=== PATIENT | female | born 1950 | race African-American/Black ===

== ENCOUNTER 2022-12-25 19:00 | Inpatient (IN) | payer MEDICARE, OTHER ==
[~2022-12-25] VITALS: Ht 152.4 cm; Wt 108.2 kg
[2022-12-25 19:00] VITALS: BP 122/47; PULSE 80; RESP 18; TEMP 97.1
[~2022-12-25 19:00] MED LIST: ALLOPURINOL; INSULIN; LASIX; LISINOPRIL; SINGULAIR
[2022-12-25 20:00] VITALS: BP 122/47; PULSE 81; RESP 18; TEMP 97.1
[2022-12-25] MEDS: GABAPENTIN 300MG CAPSULE PO SCH (21:56)
[2022-12-25] MEDS: AMLODIPINE 2.5MG TABLET PO SCH (21:56)
[2022-12-25] MEDS: ATORVASTATIN CALCIUM 20MG TABLET PO SCH (21:57)
[2022-12-25] MEDS: GUAIFENESIN 600MG ER TABLET PO SCH (21:57)
[2022-12-26 02:10] VITALS: PULSE 76; RESP 16
[2022-12-26] MEDS: IPRATROPIUM/ALBUTEROL 0.5-3(2.5)MG/3ML NEB HHN SCH ×2 (02:10→21:58)
[2022-12-26] MEDS: GABAPENTIN 300MG CAPSULE PO SCH ×3 (05:51→22:15)
[2022-12-26 06:33] LABS: BASOPHILS % 0.5 % (0.0-2.0); EOSINOPHILS % 6.1 % (0.0-5.0); HEMOGLOBIN. 9.4 g/dL (12.0-16.0); LYMPHOCYTES % 35.1 % (20.0-50.0); MEAN CORPUSCULAR VOLUME 83.7 fL (81.0-99.0); MEAN PLATELET VOLUME 7.8 fl (7.4-10.4); MONOCYTES % 6.1 % (2.0-8.0); NEUTROPHILS % 52.2 % (40.0-76.0); PLATELET 303 x1000/uL (130-400); RED BLOOD CELL COUNT 3.47 mill/uL (4.2-5.4); RED CELL DISTRIBUTION WIDTH 16.5 % (11.6-14.6)
[2022-12-26 06:47] LABS: CHLORIDE 103 mEq/L (98-107)
[2022-12-26] MEDS ORDERED: SODIUM CHLORIDE 0.45% 1,000 ML IV SCH (07:45)
[2022-12-26 08:00] VITALS: BP 122/54; PULSE 74; RESP 18; TEMP 96.7
[2022-12-26] MEDS ORDERED: CLONIDINE 0.2MG TABLET PO PRN (08:00)
[2022-12-26] MEDS ORDERED: IPRATROPIUM/ALBUTEROL 0.5-3(2.5)MG/3ML NEB HHN PRN (08:00)
[2022-12-26] MEDS: CHOLECALCIFEROL (D3) 1000 UNIT TABLET PO SCH (08:41)
[2022-12-26] MEDS: FERROUS SULFATE 325MG TABLET PO SCH ×2 (08:41→18:00)
[2022-12-26] MEDS: ALLOPURINOL 100 MG TABLET PO SCH (08:41)
[2022-12-26] MEDS: ASPIRIN 81MG TABLET PO SCH (08:42)
[2022-12-26] MEDS: FUROSEMIDE 40MG TABLET PO SCH (08:42)
[2022-12-26] MEDS: LOSARTAN POTASSIUM 25 MG TABLET PO SCH ×2 (08:42→18:01)
[2022-12-26] MEDS: GUAIFENESIN 600MG ER TABLET PO SCH ×2 (08:42→22:05)
[2022-12-26] MEDS: AMLODIPINE 2.5MG TABLET PO SCH ×2 (08:43→22:05)
[2022-12-26] MEDS: PANTOT AC/MIN OIL/PET HY-PHL OINT (AQUAPHOR) TOP SCH (09:00)
[2022-12-26] MEDS ORDERED: PRAMOXINE HCL PR SCH (09:00)
[2022-12-26 09:16] LABS: CREATINE KINASE 94 IU/L (26-192)
[2022-12-26] MEDS ORDERED: POVIDONE-IODINE 10% TOPICAL SOLN 240ML TOP NR (13:30)
[2022-12-26] MEDS ORDERED: LACTULOSE 20G/30ML UDC PO NR (14:22)
[2022-12-26] MEDS: LEVOFLOXACIN 250MG TABLET PO SCH (18:01)
[2022-12-26 20:00] VITALS: BP 122/63; PULSE 86; RESP 19; TEMP 97
[2022-12-26 21:55] VITALS: PULSE 84; RESP 20
[2022-12-26] MEDS: ATORVASTATIN CALCIUM 20MG TABLET PO SCH (22:10)
[2022-12-26] MEDS: CETIRIZINE 10MG TABLET PO SCH (22:15)
[2022-12-26] MEDS: LATANOPROST 0.005% OPHTH DROPS 2.5ML RIGHTEYE SCH (23:00)
[2022-12-27 05:12] LABS: CHLORIDE 102 mEq/L (98-107)
[2022-12-27 05:24] LABS: TOTAL IRON BINDING CAPACITY 190 ug/dL (250-450)
[2022-12-27 05:55] LABS: FOLIC ACID (FOLATE) SERUM 7.6 ng/mL (>5.38)
[2022-12-27 06:28] LABS: BASOPHILS % 0.5 % (0.0-2.0); EOSINOPHILS % 5.4 % (0.0-5.0); HEMATOCRIT. 28.7 % (36.0-48.0); HEMOGLOBIN. 9.1 g/dL (12.0-16.0); LYMPHOCYTES % 29.4 % (20.0-50.0); MEAN CORPUSCULAR HEMOGLOBIN 26.8 pg (28.0-32.0); MEAN CORPUSCULAR VOLUME 84.2 fL (81.0-99.0); MEAN PLATELET VOLUME 8.1 fl (7.4-10.4); NEUTROPHILS % 57.7 % (40.0-76.0); PLATELET 314 x1000/uL (130-400); RED BLOOD CELL COUNT 3.41 mill/uL (4.2-5.4); RED CELL DISTRIBUTION WIDTH 16.5 % (11.6-14.6)
[2022-12-27] MEDS: GABAPENTIN 300MG CAPSULE PO SCH ×3 (07:00→22:43)
[2022-12-27 07:31] VITALS: PULSE 80; RESP 18
[2022-12-27] MEDS: IPRATROPIUM/ALBUTEROL 0.5-3(2.5)MG/3ML NEB HHN SCH ×3 (07:31→22:45)
[2022-12-27 08:00] VITALS: BP 110/64; PULSE 78; RESP 20; TEMP 98.2
[2022-12-27] MEDS ORDERED: LACTULOSE 20G/30ML UDC PO PRN (08:00)
[2022-12-27] MEDS: LOSARTAN POTASSIUM 25 MG TABLET PO SCH (08:30)
[2022-12-27] MEDS: AMLODIPINE 2.5MG TABLET PO SCH ×2 (08:30→20:59)
[2022-12-27] MEDS: FUROSEMIDE 40MG TABLET PO SCH (08:36)
[2022-12-27] MEDS: GUAIFENESIN 600MG ER TABLET PO SCH ×2 (08:36→21:00)
[2022-12-27] MEDS: ASPIRIN 81MG TABLET PO SCH (08:36)
[2022-12-27] MEDS: ALLOPURINOL 100 MG TABLET PO SCH (08:37)
[2022-12-27] MEDS: PANTOT AC/MIN OIL/PET HY-PHL OINT (AQUAPHOR) TOP SCH (08:42)
[2022-12-27] MEDS: FERROUS SULFATE 325MG TABLET PO SCH ×2 (08:42→16:10)
[2022-12-27] MEDS: CHOLECALCIFEROL (D3) 1000 UNIT TABLET PO SCH (08:42)
[2022-12-27 12:44] VITALS: PULSE 78; RESP 18
[2022-12-27] MEDS: BUDESONIDE 0.5MG/2ML NEB HHN SCH ×2 (12:44→22:45)
[2022-12-27] MEDS: LIDOCAINE 5% PATCH TOP SCH (13:07)
[2022-12-27] MEDS: DICLOFENAC SODIUM 1% GEL 50GM TOP SCH ×3 (13:39→22:44)
[2022-12-27 20:00] VITALS: BP 134/48; PULSE 74; RESP 20; TEMP 97.5
[2022-12-27] MEDS: LATANOPROST 0.005% OPHTH DROPS 2.5ML RIGHTEYE SCH (21:00)
[2022-12-27] MEDS: CETIRIZINE 10MG TABLET PO SCH (21:01)
[2022-12-27] MEDS: ATORVASTATIN CALCIUM 20MG TABLET PO SCH (21:01)
[2022-12-27 22:23] VITALS: RESP 18
[2022-12-27 22:40] VITALS: PULSE 82; RESP 18; O2SAT 97
[2022-12-28] MEDS: GABAPENTIN 300MG CAPSULE PO SCH ×3 (05:41→22:11)
[2022-12-28 07:15] LABS: BASOPHILS % 0.6 % (0.0-2.0); EOSINOPHILS % 5.2 % (0.0-5.0); HEMATOCRIT. 29.3 % (36.0-48.0); HEMOGLOBIN. 9.2 g/dL (12.0-16.0); LYMPHOCYTES % 30.8 % (20.0-50.0); MEAN CORPUSCULAR HEMOGLOBIN 26.4 pg (28.0-32.0); MEAN CORPUSCULAR VOLUME 83.8 fL (81.0-99.0); MEAN PLATELET VOLUME 8.2 fl (7.4-10.4); MONOCYTES % 7.3 % (2.0-8.0); NEUTROPHILS % 56.1 % (40.0-76.0); PLATELET 295 x1000/uL (130-400); RED BLOOD CELL COUNT 3.49 mill/uL (4.2-5.4); RED CELL DISTRIBUTION WIDTH 16.3 % (11.6-14.6)
[2022-12-28 08:00] VITALS: BP 117/54; PULSE 87; RESP 18; TEMP 96.6
[2022-12-28] MEDS: FERROUS SULFATE 325MG TABLET PO SCH ×2 (09:15→17:42)
[2022-12-28] MEDS: GUAIFENESIN 600MG ER TABLET PO SCH ×2 (09:15→22:12)
[2022-12-28] MEDS: IPRATROPIUM/ALBUTEROL 0.5-3(2.5)MG/3ML NEB HHN SCH ×4 (09:15→20:14)
[2022-12-28] MEDS: BUDESONIDE 0.5MG/2ML NEB HHN SCH ×2 (09:15→20:11)
[2022-12-28] MEDS: ALLOPURINOL 100 MG TABLET PO SCH (09:15)
[2022-12-28] MEDS: ASPIRIN 81MG TABLET PO SCH (09:15)
[2022-12-28] MEDS: LIDOCAINE 5% PATCH TOP SCH (09:15)
[2022-12-28] MEDS: DICLOFENAC SODIUM 1% GEL 50GM TOP SCH ×4 (09:16→22:10)
[2022-12-28] MEDS: AMLODIPINE 2.5MG TABLET PO SCH ×2 (09:16→21:00)
[2022-12-28] MEDS: CHOLECALCIFEROL (D3) 1000 UNIT TABLET PO SCH (09:17)
[2022-12-28] MEDS: PANTOT AC/MIN OIL/PET HY-PHL OINT (AQUAPHOR) TOP SCH (09:18)
[2022-12-28 09:35] VITALS: PULSE 84; RESP 18; O2SAT 98
[2022-12-28 15:35] VITALS: PULSE 87; RESP 16; O2SAT 98
[2022-12-28] MEDS: LEVOFLOXACIN 250MG TABLET PO SCH (17:42)
[2022-12-28 20:00] VITALS: BP 109/51; PULSE 94; RESP 20; TEMP 97
[2022-12-28 20:14] VITALS: PULSE 94; RESP 18; O2SAT 98
[2022-12-28] MEDS: LATANOPROST 0.005% OPHTH DROPS 2.5ML RIGHTEYE SCH (21:00)
[2022-12-28] MEDS: ATORVASTATIN CALCIUM 20MG TABLET PO SCH (22:11)
[2022-12-28] MEDS: CETIRIZINE 10MG TABLET PO SCH (22:11)
[2022-12-28 23:58] VITALS: RESP 18
[2022-12-29] VITALS (7 sets, daily range): BP systolic 108–134; BP diastolic 52–53; PULSE 72–102; RESP 17–25; TEMP 97.7–98.1; O2SAT 93
[2022-12-29] MEDS: IPRATROPIUM/ALBUTEROL 0.5-3(2.5)MG/3ML NEB HHN SCH ×4 (02:03→21:34)
[2022-12-29] MEDS: GABAPENTIN 300MG CAPSULE PO SCH ×3 (06:15→21:24)
[2022-12-29 06:19] LABS: BASOPHILS % 0.5 % (0.0-2.0); EOSINOPHILS % 3.9 % (0.0-5.0); HEMATOCRIT. 27.9 % (36.0-48.0); HEMOGLOBIN. 8.9 g/dL (12.0-16.0); LYMPHOCYTES % 33.5 % (20.0-50.0); MEAN CORPUSCULAR HEMOGLOBIN 26.7 pg (28.0-32.0); MEAN CORPUSCULAR VOLUME 84.2 fL (81.0-99.0); MEAN PLATELET VOLUME 8.2 fl (7.4-10.4); NEUTROPHILS % 53.1 % (40.0-76.0); PLATELET 273 x1000/uL (130-400); RED BLOOD CELL COUNT 3.31 mill/uL (4.2-5.4); RED CELL DISTRIBUTION WIDTH 16.6 % (11.6-14.6)
[2022-12-29] MEDS: ASPIRIN 81MG TABLET PO SCH (08:13)
[2022-12-29] MEDS: ALLOPURINOL 100 MG TABLET PO SCH (08:13)
[2022-12-29] MEDS: CHOLECALCIFEROL (D3) 1000 UNIT TABLET PO SCH (08:13)
[2022-12-29] MEDS: GUAIFENESIN 600MG ER TABLET PO SCH ×2 (08:14→21:24)
[2022-12-29] MEDS: DICLOFENAC SODIUM 1% GEL 50GM TOP SCH ×5 (08:14→21:22)
[2022-12-29] MEDS: FERROUS SULFATE 325MG TABLET PO SCH ×2 (08:14→16:39)
[2022-12-29] MEDS: PANTOT AC/MIN OIL/PET HY-PHL OINT (AQUAPHOR) TOP SCH (08:15)
[2022-12-29] MEDS: LIDOCAINE 5% PATCH TOP SCH (08:15)
[2022-12-29] MEDS: AMLODIPINE 2.5MG TABLET PO SCH ×2 (08:16→21:23)
[2022-12-29] MEDS: BUDESONIDE 0.5MG/2ML NEB HHN SCH ×2 (09:24→21:34)
[2022-12-29] MEDS ORDERED: LIDOCAINE HCL 1% 20ML VIAL (Pyxis) INJ INFIL NR (12:08)
[2022-12-29] MEDS ORDERED: ETHYL CHLORIDE CAN TOP NR (13:00)
[2022-12-29] MEDS ORDERED: TRIAMCINOLONE ACETONIDE 40MG/ML 1ML VIAL IM NR (13:00)
[2022-12-29] MEDS ORDERED: LIDOCAINE HCL 1% 10 MG/ML 10ML VIAL IJ NR (13:00)
[2022-12-29] MEDS ORDERED: PRAMOXINE HCL PR PRN (20:15)
[2022-12-29] MEDS ORDERED: CLONIDINE 0.1MG TABLET PO PRN (20:15)
[2022-12-29] MEDS: ATORVASTATIN CALCIUM 20MG TABLET PO SCH (21:23)
[2022-12-29] MEDS: CETIRIZINE 10MG TABLET PO SCH (21:24)
[2022-12-29] MEDS: LATANOPROST 0.005% OPHTH DROPS 2.5ML RIGHTEYE SCH (22:29)
[2022-12-30] MEDS: IPRATROPIUM/ALBUTEROL 0.5-3(2.5)MG/3ML NEB HHN SCH (02:00)
[2022-12-30 04:58] VITALS: RESP 26
[2022-12-30] MEDS: GABAPENTIN 300MG CAPSULE PO SCH ×3 (06:49→22:00)
[2022-12-30 08:00] VITALS: BP 130/61; PULSE 101; RESP 17; TEMP 97.9
[2022-12-30] MEDS ORDERED: ALLO100T PO (08:34)
[2022-12-30] MEDS ORDERED: ASPI-1160 PO (08:34)
[2022-12-30] MEDS ORDERED: LIDO700A30 TOP (08:34)
[2022-12-30] MEDS ORDERED: PETR85OI TOP (08:34)
[2022-12-30] MEDS ORDERED: ATOR20TA PO (08:34)
[2022-12-30] MEDS ORDERED: XALAO RIGHTEYE (08:34)
[2022-12-30] MEDS ORDERED: AMLO2.5T45 PO (08:34)
[2022-12-30] MEDS ORDERED: GABA-532 PO (08:34)
[2022-12-30] MEDS ORDERED: CETI10TA6 PO (08:34)
[2022-12-30] MEDS: CHOLECALCIFEROL (D3) 1000 UNIT TABLET PO SCH (09:19)
[2022-12-30] MEDS: GUAIFENESIN 600MG ER TABLET PO SCH ×2 (09:19→22:00)
[2022-12-30] MEDS: ALLOPURINOL 100 MG TABLET PO SCH (09:19)
[2022-12-30] MEDS: ASPIRIN 81MG TABLET PO SCH (09:19)
[2022-12-30] MEDS: FERROUS SULFATE 325MG TABLET PO SCH ×2 (09:19→17:00)
[2022-12-30] MEDS: LIDOCAINE 5% PATCH TOP SCH (09:20)
[2022-12-30] MEDS: AMLODIPINE 2.5MG TABLET PO SCH ×2 (09:20→22:00)
[2022-12-30] MEDS: DICLOFENAC SODIUM 1% GEL 50GM TOP SCH ×4 (09:27→22:00)
[2022-12-30] MEDS: PANTOT AC/MIN OIL/PET HY-PHL OINT (AQUAPHOR) TOP SCH (09:27)
[2022-12-30 13:13] VITALS: PULSE 88; RESP 18; O2SAT 100
[2022-12-30] MEDS: BUDESONIDE 0.5MG/2ML NEB HHN SCH (13:13)
[2022-12-30] MEDS: IPRATROPIUM/ALBUTEROL 0.5-3(2.5)MG/3ML NEB HHN PRN (13:13)
[2022-12-30 20:00] VITALS: BP 144/64; PULSE 95; RESP 17; TEMP 98.1
[2022-12-30 21:25] LABS: BASOPHILS % 0.6 % (0.0-2.0); HEMATOCRIT. 29.4 % (36.0-48.0); HEMOGLOBIN. 9.3 g/dL (12.0-16.0); LYMPHOCYTES % 28.1 % (20.0-50.0); MEAN CORPUSCULAR HEMOGLOBIN 26.6 pg (28.0-32.0); MEAN CORPUSCULAR VOLUME 84.5 fL (81.0-99.0); MEAN PLATELET VOLUME 8.2 fl (7.4-10.4); MONOCYTES % 9.2 % (2.0-8.0); NEUTROPHILS % 57.1 % (40.0-76.0); PLATELET 281 x1000/uL (130-400); RED BLOOD CELL COUNT 3.48 mill/uL (4.2-5.4); RED CELL DISTRIBUTION WIDTH 16.6 % (11.6-14.6)
[2022-12-30] MEDS: ATORVASTATIN CALCIUM 20MG TABLET PO SCH (22:00)
[2022-12-30] MEDS: LATANOPROST 0.005% OPHTH DROPS 2.5ML RIGHTEYE SCH (22:00)
[2022-12-30] MEDS: CETIRIZINE 10MG TABLET PO SCH (22:00)
[2022-12-31] MEDS ORDERED: SODIUM POLYSTYRENE SULFONATE 15 G/60 ML BOT PO NR (04:45)
[2022-12-31] MEDS: GABAPENTIN 300MG CAPSULE PO SCH ×3 (06:15→22:18)
[2022-12-31 06:23] LABS: BASOPHILS % 0.6 % (0.0-2.0); HEMATOCRIT. 27.9 % (36.0-48.0); HEMOGLOBIN. 8.7 g/dL (12.0-16.0); LYMPHOCYTES % 27.3 % (20.0-50.0); MEAN CORPUSCULAR HEMOGLOBIN 26.4 pg (28.0-32.0); MEAN CORPUSCULAR VOLUME 84.5 fL (81.0-99.0); MEAN PLATELET VOLUME 8.7 fl (7.4-10.4); MONOCYTES % 9.1 % (2.0-8.0); PLATELET 250 x1000/uL (130-400); RED CELL DISTRIBUTION WIDTH 16.9 % (11.6-14.6)
[2022-12-31] MEDS ORDERED: ALBUTEROL (0.5%) 2.5MG/0.5ML NEB HHN NR (07:30)
[2022-12-31 08:00] VITALS: BP 105/54; PULSE 89; RESP 18; TEMP 98
[2022-12-31] MEDS: CHOLECALCIFEROL (D3) 1000 UNIT TABLET PO SCH (08:32)
[2022-12-31] MEDS: ALLOPURINOL 100 MG TABLET PO SCH (08:32)
[2022-12-31] MEDS: ASPIRIN 81MG TABLET PO SCH (08:32)
[2022-12-31] MEDS: DICLOFENAC SODIUM 1% GEL 50GM TOP SCH ×4 (08:32→21:00)
[2022-12-31] MEDS: FERROUS SULFATE 325MG TABLET PO SCH ×2 (08:32→17:00)
[2022-12-31] MEDS: GUAIFENESIN 600MG ER TABLET PO SCH ×2 (08:32→21:00)
[2022-12-31] MEDS: FUROSEMIDE 40MG TABLET PO SCH ×2 (08:32→21:00)
[2022-12-31] MEDS: AMLODIPINE 2.5MG TABLET PO SCH ×2 (08:37→21:00)
[2022-12-31] MEDS: PANTOT AC/MIN OIL/PET HY-PHL OINT (AQUAPHOR) TOP SCH (08:38)
[2022-12-31] MEDS: LIDOCAINE 5% PATCH TOP SCH (08:39)
[2022-12-31 20:00] VITALS: BP 98/53; PULSE 63; RESP 16; TEMP 97.6
[2022-12-31] MEDS: CETIRIZINE 10MG TABLET PO SCH (21:00)
[2022-12-31] MEDS: ATORVASTATIN CALCIUM 20MG TABLET PO SCH (21:00)
[2022-12-31] MEDS: LATANOPROST 0.005% OPHTH DROPS 2.5ML RIGHTEYE SCH (21:00)
[2022-12-31 22:50] VITALS: RESP 18
[2023-01-01 00:48] VITALS: RESP 18
[2023-01-01 04:48] VITALS: RESP 18
[2023-01-01] MEDS: GABAPENTIN 300MG CAPSULE PO SCH ×3 (06:00→22:00)
[2023-01-01 06:12] LABS: BASOPHILS % 0.7 % (0.0-2.0); HEMATOCRIT. 26.7 % (36.0-48.0); HEMOGLOBIN. 8.5 g/dL (12.0-16.0); MEAN CORPUSCULAR HEMOGLOBIN 26.6 pg (28.0-32.0); MEAN CORPUSCULAR VOLUME 83.7 fL (81.0-99.0); MEAN PLATELET VOLUME 8.5 fl (7.4-10.4); MONOCYTES % 9.9 % (2.0-8.0); NEUTROPHILS % 48.4 % (40.0-76.0); PLATELET 232 x1000/uL (130-400); RED BLOOD CELL COUNT 3.19 mill/uL (4.2-5.4); RED CELL DISTRIBUTION WIDTH 16.3 % (11.6-14.6)
[2023-01-01] MEDS ORDERED: SODIUM CHLORIDE 0.9% 250 ML IV NR ×2 (06:45→06:46)
[2023-01-01] MEDS ORDERED: CLONIDINE 0.1MG TABLET PO PRN (07:00)
[2023-01-01 08:00] VITALS: BP 131/71; PULSE 72; RESP 17; TEMP 97.5
[2023-01-01] MEDS ORDERED: SODIUM CHLORIDE 0.9% 250 ML IV ONE (08:00)
[2023-01-01] MEDS: FERROUS SULFATE 325MG TABLET PO SCH ×2 (09:00→16:11)
[2023-01-01] MEDS: DICLOFENAC SODIUM 1% GEL 50GM TOP SCH ×4 (09:00→21:59)
[2023-01-01] MEDS: GUAIFENESIN 600MG ER TABLET PO SCH ×2 (09:00→23:35)
[2023-01-01] MEDS: LIDOCAINE 5% PATCH TOP SCH (09:00)
[2023-01-01] MEDS: CHOLECALCIFEROL (D3) 1000 UNIT TABLET PO SCH (09:00)
[2023-01-01] MEDS: ASPIRIN 81MG TABLET PO SCH (09:00)
[2023-01-01] MEDS: AMLODIPINE 2.5MG TABLET PO SCH ×2 (09:00→21:57)
[2023-01-01] MEDS: ALLOPURINOL 100 MG TABLET PO SCH (09:00)
[2023-01-01] MEDS: PANTOT AC/MIN OIL/PET HY-PHL OINT (AQUAPHOR) TOP SCH (09:00)
[2023-01-01] MEDS: FUROSEMIDE 40MG TABLET PO SCH ×2 (09:00→21:58)
[2023-01-01] MEDS ORDERED: HYDROCODONE/ACETAMINOPHEN 5/325MG TABLET PO PRN (18:00)
[2023-01-01 19:45] VITALS: BP 140/61; PULSE 76; RESP 18; TEMP 97.2
[2023-01-01] MEDS: CETIRIZINE 10MG TABLET PO SCH (21:58)
[2023-01-01] MEDS: ATORVASTATIN CALCIUM 20MG TABLET PO SCH (21:58)
[2023-01-01] MEDS: LATANOPROST 0.005% OPHTH DROPS 2.5ML RIGHTEYE SCH (21:59)
[2023-01-01 22:45] VITALS: RESP 19
[2023-01-02 01:59] VITALS: RESP 19
[2023-01-02] MEDS: GABAPENTIN 300MG CAPSULE PO SCH ×3 (06:19→21:55)
[2023-01-02 08:00] VITALS: BP 129/53; PULSE 73; RESP 20; TEMP 96.5
[2023-01-02] MEDS: ASPIRIN 81MG TABLET PO SCH (08:02)
[2023-01-02] MEDS: FERROUS SULFATE 325MG TABLET PO SCH ×2 (08:02→16:39)
[2023-01-02] MEDS: FUROSEMIDE 40MG TABLET PO SCH ×2 (08:03→21:50)
[2023-01-02] MEDS: AMLODIPINE 2.5MG TABLET PO SCH ×2 (08:04→21:50)
[2023-01-02] MEDS: GUAIFENESIN 600MG ER TABLET PO SCH ×2 (08:04→21:50)
[2023-01-02] MEDS: ALLOPURINOL 100 MG TABLET PO SCH (08:05)
[2023-01-02] MEDS: LIDOCAINE 5% PATCH TOP SCH (08:06)
[2023-01-02] MEDS: CHOLECALCIFEROL (D3) 1000 UNIT TABLET PO SCH (08:33)
[2023-01-02] MEDS: DICLOFENAC SODIUM 1% GEL 50GM TOP SCH ×4 (08:35→22:00)
[2023-01-02] MEDS: PANTOT AC/MIN OIL/PET HY-PHL OINT (AQUAPHOR) TOP SCH (08:46)
[2023-01-02 20:00] VITALS: BP 140/41; PULSE 95; RESP 20; TEMP 97
[2023-01-02 21:30] VITALS: PULSE 97; RESP 18; O2SAT 95
[2023-01-02] MEDS: IPRATROPIUM/ALBUTEROL 0.5-3(2.5)MG/3ML NEB HHN PRN (21:30)
[2023-01-02] MEDS: CETIRIZINE 10MG TABLET PO SCH (21:50)
[2023-01-02] MEDS: ATORVASTATIN CALCIUM 20MG TABLET PO SCH (21:50)
[2023-01-02] MEDS: LATANOPROST 0.005% OPHTH DROPS 2.5ML RIGHTEYE SCH (21:55)
[2023-01-02 23:59] VITALS: RESP 22
[2023-01-03 02:53] VITALS: RESP 22
[2023-01-03] MEDS: GABAPENTIN 300MG CAPSULE PO SCH ×3 (06:21→21:59)
[2023-01-03] MEDS: INSULIN LISPRO 100 UNITS/ML SUBCUT SCH ×2 (06:24→13:00)
[2023-01-03 06:42] LABS: T4 FREE 1.12 ng/dL (0.76-1.46)
[2023-01-03 08:00] VITALS: BP 104/45; PULSE 75; RESP 17; TEMP 97.2
[2023-01-03] MEDS: PANTOT AC/MIN OIL/PET HY-PHL OINT (AQUAPHOR) TOP SCH (09:00)
[2023-01-03] MEDS: DICLOFENAC SODIUM 1% GEL 50GM TOP SCH ×4 (09:00→21:58)
[2023-01-03] MEDS: ALLOPURINOL 100 MG TABLET PO SCH (09:09)
[2023-01-03] MEDS: ASPIRIN 81MG TABLET PO SCH (09:09)
[2023-01-03] MEDS: FERROUS SULFATE 325MG TABLET PO SCH ×2 (09:09→17:57)
[2023-01-03] MEDS: FUROSEMIDE 40MG TABLET PO SCH ×2 (09:09→21:59)
[2023-01-03] MEDS: LINAGLIPTIN 5MG TABLET PO SCH (09:10)
[2023-01-03] MEDS: AMLODIPINE 2.5MG TABLET PO SCH ×2 (09:10→21:58)
[2023-01-03] MEDS: CHOLECALCIFEROL (D3) 1000 UNIT TABLET PO SCH (09:10)
[2023-01-03] MEDS: GUAIFENESIN 600MG ER TABLET PO SCH ×2 (09:10→21:59)
[2023-01-03] MEDS: LIDOCAINE 5% PATCH TOP SCH (09:19)
[2023-01-03] MEDS: BLOOD SUGAR DIAGNOSTIC STRIP TEST SCH ×3 (11:15→21:28)
[2023-01-03] MEDS ORDERED: DEXTROSE 50% WATER 50ML SYRINGE IV PRN (12:15)
[2023-01-03 12:24] VITALS: PULSE 73; RESP 20; O2SAT 100
[2023-01-03] MEDS: IPRATROPIUM/ALBUTEROL 0.5-3(2.5)MG/3ML NEB HHN PRN (12:25)
[2023-01-03 12:40] VITALS: RESP 20
[2023-01-03 16:58] LABS: BASOPHILS % 0.6 % (0.0-2.0); EOSINOPHILS % 4.9 % (0.0-5.0); HEMOGLOBIN. 9.7 g/dL (12.0-16.0); MEAN CORPUSCULAR HEMOGLOBIN 26.9 pg (28.0-32.0); MEAN CORPUSCULAR VOLUME 82.8 fL (81.0-99.0); MEAN PLATELET VOLUME 8.6 fl (7.4-10.4); MONOCYTES % 7.6 % (2.0-8.0); NEUTROPHILS % 51.9 % (40.0-76.0); PLATELET 277 x1000/uL (130-400); RED BLOOD CELL COUNT 3.62 mill/uL (4.2-5.4); RED CELL DISTRIBUTION WIDTH 16.1 % (11.6-14.6)
[2023-01-03 17:49] LABS: BG BASE EXCESS 11.3 mmol/L (-2.0-2.0); BG CARBOXYHEMOGLOBIN 0.2 % (0.5-1.5); BG DEOXYHEMOGLOBIN 2.3 % (0.0-5.0); BG FRACTION INSPIRED OXYGEN 28; BG HCO3 ACT 37.9 mmol/L (22.0-26.0); BG OXYGEN SATURATION 97.7 % (92.0-98.5); BG OXYHEMOGLOBIN 97.5 % (94.0-97.0); BG PCO2 59.7 mmHg (35.0-45.0); BG PO2 101.3 mmHg (75.0-100.0); BG SAMPLE SITE RIGHT RADIAL; BG VENT MODE NASAL CANNULA
[2023-01-03 20:00] VITALS: BP 113/48; PULSE 82; RESP 20; TEMP 97
[2023-01-03] MEDS: ATORVASTATIN CALCIUM 20MG TABLET PO SCH (21:58)
[2023-01-03] MEDS: LATANOPROST 0.005% OPHTH DROPS 2.5ML RIGHTEYE SCH (21:59)
[2023-01-03] MEDS: CETIRIZINE 10MG TABLET PO SCH (21:59)
[2023-01-04 00:45] VITALS: RESP 19
[2023-01-04 04:15] VITALS: RESP 20
[2023-01-04] MEDS: GABAPENTIN 300MG CAPSULE PO SCH ×3 (06:00→21:22)
[2023-01-04] MEDS: BLOOD SUGAR DIAGNOSTIC STRIP TEST SCH ×4 (06:04→21:20)
[2023-01-04 06:22] LABS: BASOPHILS % 0.5 % (0.0-2.0); EOSINOPHILS % 4.8 % (0.0-5.0); HEMATOCRIT. 28.6 % (36.0-48.0); HEMOGLOBIN. 9.1 g/dL (12.0-16.0); LYMPHOCYTES % 32.8 % (20.0-50.0); MEAN CORPUSCULAR HEMOGLOBIN 26.3 pg (28.0-32.0); MEAN CORPUSCULAR VOLUME 82.8 fL (81.0-99.0); MEAN PLATELET VOLUME 8.7 fl (7.4-10.4); NEUTROPHILS % 53.9 % (40.0-76.0); PLATELET 264 x1000/uL (130-400); RED BLOOD CELL COUNT 3.46 mill/uL (4.2-5.4); RED CELL DISTRIBUTION WIDTH 16.4 % (11.6-14.6)
[2023-01-04] MEDS: INSULIN LISPRO 100 UNITS/ML SUBCUT SCH ×3 (07:00→17:41)
[2023-01-04 08:00] VITALS: BP 118/43; PULSE 78; RESP 18; TEMP 97.2
[2023-01-04] MEDS: AMLODIPINE 2.5MG TABLET PO SCH ×2 (09:00→21:22)
[2023-01-04] MEDS: PANTOT AC/MIN OIL/PET HY-PHL OINT (AQUAPHOR) TOP SCH (09:00)
[2023-01-04] MEDS: ASPIRIN 81MG TABLET PO SCH (09:37)
[2023-01-04] MEDS: FERROUS SULFATE 325MG TABLET PO SCH ×2 (09:37→17:36)
[2023-01-04] MEDS: FUROSEMIDE 40MG TABLET PO SCH ×2 (09:38→21:22)
[2023-01-04] MEDS: LINAGLIPTIN 5MG TABLET PO SCH (09:38)
[2023-01-04] MEDS: CHOLECALCIFEROL (D3) 1000 UNIT TABLET PO SCH (09:38)
[2023-01-04] MEDS: ALLOPURINOL 100 MG TABLET PO SCH (09:38)
[2023-01-04] MEDS: LIDOCAINE 5% PATCH TOP SCH (09:38)
[2023-01-04] MEDS: GUAIFENESIN 600MG ER TABLET PO SCH ×2 (09:38→21:22)
[2023-01-04] MEDS: DICLOFENAC SODIUM 1% GEL 50GM TOP SCH ×4 (09:41→21:23)
[2023-01-04] MEDS: ACETAMINOPHEN 325MG TABLET PO PRN (09:41)
[2023-01-04 10:00] VITALS: PULSE 88; RESP 22; O2SAT 96
[2023-01-04] MEDS: IPRATROPIUM/ALBUTEROL 0.5-3(2.5)MG/3ML NEB HHN PRN (10:03)
[2023-01-04 10:33] LABS: CREATINE KINASE 132 IU/L (26-192)
[2023-01-04 16:02] LABS: CLARITY URINE CLEAR (CLEAR); COLOR URINE YELLOW (YELLOW); KETONES URINE NEGATIVE (NEGATIVE); LEUKOCYTE ESTERASE URINE NEGATIVE (NEGATIVE); NITRITE URINE NEGATIVE (NEGATIVE); OCCULT BLOOD URINE NEGATIVE (NEGATIVE); PH URINE 5.5 (4.5-8.0); PROTEIN URINE 1+ (NEGATIVE); SPECIFIC GRAVITY URINE 1.011 (1.005-1.030); UROBILINOGEN URINE 0.2 E.U./dL (0.2-1.0)
[2023-01-04 20:15] VITALS: BP 122/53; PULSE 85; RESP 18; TEMP 97.3
[2023-01-04] MEDS: CETIRIZINE 10MG TABLET PO SCH (21:22)
[2023-01-04] MEDS: ATORVASTATIN CALCIUM 20MG TABLET PO SCH (21:22)
[2023-01-04] MEDS: LATANOPROST 0.005% OPHTH DROPS 2.5ML RIGHTEYE SCH (21:23)
[2023-01-05] VITALS: RESP 24
[2023-01-05 06:18] LABS: BASOPHILS % 0.5 % (0.0-2.0); EOSINOPHILS % 4.7 % (0.0-5.0); HEMATOCRIT. 28.2 % (36.0-48.0); HEMOGLOBIN. 9.1 g/dL (12.0-16.0); LYMPHOCYTES % 30.2 % (20.0-50.0); MEAN CORPUSCULAR HEMOGLOBIN 26.7 pg (28.0-32.0); MEAN CORPUSCULAR VOLUME 82.7 fL (81.0-99.0); MEAN PLATELET VOLUME 8.7 fl (7.4-10.4); MONOCYTES % 7.2 % (2.0-8.0); NEUTROPHILS % 57.4 % (40.0-76.0); PLATELET 266 x1000/uL (130-400); RED BLOOD CELL COUNT 3.41 mill/uL (4.2-5.4)
[2023-01-05] MEDS: GABAPENTIN 300MG CAPSULE PO SCH (06:50)
[2023-01-05] MEDS: BLOOD SUGAR DIAGNOSTIC STRIP TEST SCH ×4 (06:50→20:56)
[2023-01-05] MEDS: INSULIN LISPRO 100 UNITS/ML SUBCUT SCH ×4 (07:08→22:03)
[2023-01-05 08:00] VITALS: BP 105/50; PULSE 77; RESP 18; TEMP 96.5
[2023-01-05] MEDS: PANTOT AC/MIN OIL/PET HY-PHL OINT (AQUAPHOR) TOP SCH (09:00)
[2023-01-05] MEDS: DICLOFENAC SODIUM 1% GEL 50GM TOP SCH ×4 (09:00→21:28)
[2023-01-05] MEDS: LIDOCAINE 5% PATCH TOP SCH (09:00)
[2023-01-05] MEDS: LINAGLIPTIN 5MG TABLET PO SCH (09:09)
[2023-01-05] MEDS: GUAIFENESIN 600MG ER TABLET PO SCH ×2 (09:09→21:31)
[2023-01-05] MEDS: CHOLECALCIFEROL (D3) 1000 UNIT TABLET PO SCH (09:09)
[2023-01-05] MEDS: FUROSEMIDE 40MG TABLET PO SCH ×2 (09:09→21:30)
[2023-01-05] MEDS: ASPIRIN 81MG TABLET PO SCH (09:09)
[2023-01-05] MEDS: FERROUS SULFATE 325MG TABLET PO SCH ×2 (09:10→17:26)
[2023-01-05] MEDS: ALLOPURINOL 100 MG TABLET PO SCH (09:10)
[2023-01-05] MEDS: AMLODIPINE 2.5MG TABLET PO SCH ×2 (09:10→21:30)
[2023-01-05 20:00] VITALS: BP 117/68; PULSE 69; RESP 20; TEMP 97.7
[2023-01-05 21:14] VITALS: PULSE 64; RESP 16; O2SAT 94
[2023-01-05] MEDS: IPRATROPIUM/ALBUTEROL 0.5-3(2.5)MG/3ML NEB HHN PRN (21:14)
[2023-01-05] MEDS: LATANOPROST 0.005% OPHTH DROPS 2.5ML RIGHTEYE SCH (21:28)
[2023-01-05] MEDS: CETIRIZINE 10MG TABLET PO SCH (21:30)
[2023-01-05] MEDS: ATORVASTATIN CALCIUM 20MG TABLET PO SCH (21:31)
[2023-01-05 23:56] VITALS: RESP 20
[2023-01-06 04:45] VITALS: RESP 16
[2023-01-06 06:48] LABS: BASOPHILS % 0.5 % (0.0-2.0); EOSINOPHILS % 4.8 % (0.0-5.0); HEMATOCRIT. 27.1 % (36.0-48.0); HEMOGLOBIN. 8.7 g/dL (12.0-16.0); LYMPHOCYTES % 26.4 % (20.0-50.0); MEAN CORPUSCULAR HEMOGLOBIN 26.7 pg (28.0-32.0); MEAN PLATELET VOLUME 8.4 fl (7.4-10.4); MONOCYTES % 7.4 % (2.0-8.0); NEUTROPHILS % 60.9 % (40.0-76.0); PLATELET 244 x1000/uL (130-400); RED BLOOD CELL COUNT 3.26 mill/uL (4.2-5.4); RED CELL DISTRIBUTION WIDTH 16.7 % (11.6-14.6)
[2023-01-06] MEDS: BLOOD SUGAR DIAGNOSTIC STRIP TEST SCH ×4 (07:00→21:00)
[2023-01-06] MEDS: INSULIN LISPRO 100 UNITS/ML SUBCUT SCH ×3 (07:00→17:48)
[2023-01-06 07:56] VITALS: BP 116/54; PULSE 90; RESP 18; TEMP 97.3
[2023-01-06] MEDS: GUAIFENESIN 600MG ER TABLET PO SCH ×2 (08:48→21:36)
[2023-01-06] MEDS: ALLOPURINOL 100 MG TABLET PO SCH (08:48)
[2023-01-06] MEDS: CHOLECALCIFEROL (D3) 1000 UNIT TABLET PO SCH (08:49)
[2023-01-06] MEDS: FERROUS SULFATE 325MG TABLET PO SCH ×2 (08:49→17:32)
[2023-01-06] MEDS: LINAGLIPTIN 5MG TABLET PO SCH (08:49)
[2023-01-06] MEDS: AMLODIPINE 2.5MG TABLET PO SCH ×2 (08:49→21:00)
[2023-01-06] MEDS: FUROSEMIDE 40MG TABLET PO SCH (08:49)
[2023-01-06] MEDS: LIDOCAINE 5% PATCH TOP SCH ×2 (08:54→17:32)
[2023-01-06] MEDS: ASPIRIN 81MG TABLET PO SCH (09:00)
[2023-01-06] MEDS ORDERED: GABAPENTIN 100MG CAPSULE PO SCH (09:00)
[2023-01-06] MEDS: DICLOFENAC SODIUM 1% GEL 50GM TOP SCH ×4 (09:18→21:37)
[2023-01-06] MEDS: PANTOT AC/MIN OIL/PET HY-PHL OINT (AQUAPHOR) TOP SCH (09:18)
[2023-01-06 20:00] VITALS: BP 96/44; PULSE 98; RESP 20; TEMP 97.9
[2023-01-06 21:34] VITALS: RESP 18
[2023-01-06] MEDS: CETIRIZINE 10MG TABLET PO SCH (21:37)
[2023-01-06] MEDS: ATORVASTATIN CALCIUM 20MG TABLET PO SCH (21:37)
[2023-01-06] MEDS: LATANOPROST 0.005% OPHTH DROPS 2.5ML RIGHTEYE SCH (21:37)
[2023-01-06 22:55] VITALS: BP 96/44; PULSE 98; RESP 20; TEMP 97.9
[2023-01-07 01:50] VITALS: RESP 18
[2023-01-07 06:24] LABS: BASOPHILS % 0.7 % (0.0-2.0); EOSINOPHILS % 4.3 % (0.0-5.0); HEMATOCRIT. 27.1 % (36.0-48.0); HEMOGLOBIN. 8.7 g/dL (12.0-16.0); MEAN CORPUSCULAR HEMOGLOBIN 26.7 pg (28.0-32.0); MEAN CORPUSCULAR VOLUME 83.3 fL (81.0-99.0); MEAN PLATELET VOLUME 8.3 fl (7.4-10.4); MONOCYTES % 7.4 % (2.0-8.0); NEUTROPHILS % 55.6 % (40.0-76.0); PLATELET 267 x1000/uL (130-400); RED BLOOD CELL COUNT 3.26 mill/uL (4.2-5.4); RED CELL DISTRIBUTION WIDTH 16.3 % (11.6-14.6)
[2023-01-07] MEDS: ACETAMINOPHEN 325MG TABLET PO PRN (06:42)
[2023-01-07] MEDS: INSULIN LISPRO 100 UNITS/ML SUBCUT SCH ×3 (06:57→17:00)
[2023-01-07] MEDS: BLOOD SUGAR DIAGNOSTIC STRIP TEST SCH ×4 (06:57→21:40)
[2023-01-07 07:35] VITALS: PULSE 82; RESP 20
[2023-01-07] MEDS: IPRATROPIUM/ALBUTEROL 0.5-3(2.5)MG/3ML NEB HHN PRN (07:35)
[2023-01-07 08:00] VITALS: BP 126/62; PULSE 96; RESP 17; TEMP 97.6
[2023-01-07] MEDS: LIDOCAINE 5% PATCH TOP SCH ×2 (09:00→09:58)
[2023-01-07] MEDS: PANTOT AC/MIN OIL/PET HY-PHL OINT (AQUAPHOR) TOP SCH (09:00)
[2023-01-07] MEDS: ASPIRIN 81MG TABLET PO SCH (09:00)
[2023-01-07] MEDS: DICLOFENAC SODIUM 1% GEL 50GM TOP SCH ×4 (09:00→21:55)
[2023-01-07] MEDS: CHOLECALCIFEROL (D3) 1000 UNIT TABLET PO SCH (09:50)
[2023-01-07] MEDS: AMLODIPINE 2.5MG TABLET PO SCH ×2 (09:52→21:52)
[2023-01-07] MEDS: FUROSEMIDE 40MG TABLET PO SCH (09:52)
[2023-01-07] MEDS: ALLOPURINOL 100 MG TABLET PO SCH (09:53)
[2023-01-07] MEDS: FERROUS SULFATE 325MG TABLET PO SCH ×2 (09:53→17:32)
[2023-01-07] MEDS: GUAIFENESIN 600MG ER TABLET PO SCH ×2 (09:54→21:48)
[2023-01-07] MEDS: LINAGLIPTIN 5MG TABLET PO SCH (09:54)
[2023-01-07] MEDS: GABAPENTIN 100MG CAPSULE PO SCH (18:31)
[2023-01-07 20:21] VITALS: BP 125/71; PULSE 103; RESP 18; TEMP 97.1
[2023-01-07] MEDS: CETIRIZINE 10MG TABLET PO SCH (21:49)
[2023-01-07] MEDS: ATORVASTATIN CALCIUM 20MG TABLET PO SCH (21:50)
[2023-01-07] MEDS: LATANOPROST 0.005% OPHTH DROPS 2.5ML RIGHTEYE SCH (21:54)
[2023-01-08] MEDS: INSULIN LISPRO 100 UNITS/ML SUBCUT SCH ×5 (07:00→16:20)
[2023-01-08] MEDS: BLOOD SUGAR DIAGNOSTIC STRIP TEST SCH ×4 (07:06→21:00)
[2023-01-08 08:00] VITALS: BP 121/58; PULSE 97; RESP 18; TEMP 97.9
[2023-01-08] MEDS: LINAGLIPTIN 5MG TABLET PO SCH (09:00)
[2023-01-08] MEDS: ASPIRIN 81MG TABLET PO SCH (09:00)
[2023-01-08] MEDS: DICLOFENAC SODIUM 1% GEL 50GM TOP SCH ×4 (09:00→21:00)
[2023-01-08] MEDS: ALLOPURINOL 100 MG TABLET PO SCH (09:00)
[2023-01-08] MEDS: FUROSEMIDE 40MG TABLET PO SCH (09:00)
[2023-01-08] MEDS: CHOLECALCIFEROL (D3) 1000 UNIT TABLET PO SCH (09:00)
[2023-01-08] MEDS: GUAIFENESIN 600MG ER TABLET PO SCH ×2 (09:00→20:51)
[2023-01-08] MEDS: AMLODIPINE 2.5MG TABLET PO SCH ×2 (09:00→20:53)
[2023-01-08] MEDS: LIDOCAINE 5% PATCH TOP SCH (09:00)
[2023-01-08] MEDS: FERROUS SULFATE 325MG TABLET PO SCH ×2 (09:00→16:17)
[2023-01-08] MEDS: PANTOT AC/MIN OIL/PET HY-PHL OINT (AQUAPHOR) TOP SCH (09:00)
[2023-01-08] MEDS: GABAPENTIN 100MG CAPSULE PO SCH (17:13)
[2023-01-08 20:00] VITALS: BP 129/58; PULSE 94; RESP 20; TEMP 97.4
[2023-01-08] MEDS: ATORVASTATIN CALCIUM 20MG TABLET PO SCH (20:51)
[2023-01-08] MEDS: CETIRIZINE 10MG TABLET PO SCH (20:51)
[2023-01-08] MEDS: LATANOPROST 0.005% OPHTH DROPS 2.5ML RIGHTEYE SCH (21:00)
[2023-01-09] MEDS: INSULIN LISPRO 100 UNITS/ML SUBCUT SCH ×5 (06:56→17:00)
[2023-01-09] MEDS: BLOOD SUGAR DIAGNOSTIC STRIP TEST SCH ×4 (06:56→21:15)
[2023-01-09 08:00] VITALS: BP 114/50; PULSE 69; RESP 20; TEMP 97.2
[2023-01-09] MEDS: CHOLECALCIFEROL (D3) 1000 UNIT TABLET PO SCH (08:34)
[2023-01-09] MEDS: ALLOPURINOL 100 MG TABLET PO SCH (08:35)
[2023-01-09] MEDS: FUROSEMIDE 40MG TABLET PO SCH (08:35)
[2023-01-09] MEDS: DICLOFENAC SODIUM 1% GEL 50GM TOP SCH ×3 (08:35→17:57)
[2023-01-09] MEDS: GUAIFENESIN 600MG ER TABLET PO SCH ×2 (08:35→21:28)
[2023-01-09] MEDS: ASPIRIN 81MG TABLET PO SCH (08:35)
[2023-01-09] MEDS: AMLODIPINE 2.5MG TABLET PO SCH ×2 (08:35→21:28)
[2023-01-09] MEDS: LINAGLIPTIN 5MG TABLET PO SCH (08:35)
[2023-01-09] MEDS: FERROUS SULFATE 325MG TABLET PO SCH ×2 (08:35→17:37)
[2023-01-09] MEDS: PANTOT AC/MIN OIL/PET HY-PHL OINT (AQUAPHOR) TOP SCH (08:36)
[2023-01-09] MEDS: LIDOCAINE 5% PATCH TOP SCH (08:36)
[2023-01-09 11:24] VITALS: PULSE 98; RESP 20; O2SAT 100
[2023-01-09] MEDS: IPRATROPIUM/ALBUTEROL 0.5-3(2.5)MG/3ML NEB HHN PRN ×2 (11:24→21:44)
[2023-01-09] MEDS: GABAPENTIN 100MG CAPSULE PO SCH (17:37)
[2023-01-09 19:37] VITALS: BP 121/60; PULSE 100; RESP 17; TEMP 97.6
[2023-01-09] MEDS: LATANOPROST 0.005% OPHTH DROPS 2.5ML RIGHTEYE SCH (21:00)
[2023-01-09] MEDS: ATORVASTATIN CALCIUM 20MG TABLET PO SCH (21:28)
[2023-01-09] MEDS: CETIRIZINE 10MG TABLET PO SCH (21:28)
[2023-01-09 21:44] VITALS: PULSE 106; RESP 19; O2SAT 98
[2023-01-09 22:36] VITALS: RESP 17
[2023-01-10] MEDS: BLOOD SUGAR DIAGNOSTIC STRIP TEST SCH ×2 (06:58→11:24)
[2023-01-10] MEDS: INSULIN LISPRO 100 UNITS/ML SUBCUT SCH ×3 (06:59→11:24)
[2023-01-10 08:00] VITALS: BP 117/60; PULSE 94; RESP 18; TEMP 97.5
[2023-01-10 08:16] LABS: BASOPHILS % 0.4 % (0.0-2.0); EOSINOPHILS % 4.2 % (0.0-5.0); HEMATOCRIT. 26.6 % (36.0-48.0); HEMOGLOBIN. 8.8 g/dL (12.0-16.0); LYMPHOCYTES % 27.7 % (20.0-50.0); MEAN CORPUSCULAR HEMOGLOBIN 27.4 pg (28.0-32.0); MEAN CORPUSCULAR VOLUME 82.8 fL (81.0-99.0); MEAN PLATELET VOLUME 8.4 fl (7.4-10.4); NEUTROPHILS % 58.7 % (40.0-76.0); PLATELET 282 x1000/uL (130-400); RED BLOOD CELL COUNT 3.21 mill/uL (4.2-5.4); RED CELL DISTRIBUTION WIDTH 16.2 % (11.6-14.6)
[2023-01-10] MEDS: LIDOCAINE 5% PATCH TOP SCH (08:26)
[2023-01-10] MEDS: ASPIRIN 81MG TABLET PO SCH (08:30)
[2023-01-10] MEDS: FUROSEMIDE 40MG TABLET PO SCH (08:31)
[2023-01-10] MEDS: CHOLECALCIFEROL (D3) 1000 UNIT TABLET PO SCH (08:31)
[2023-01-10] MEDS: ALLOPURINOL 100 MG TABLET PO SCH (08:31)
[2023-01-10] MEDS: LINAGLIPTIN 5MG TABLET PO SCH (08:31)
[2023-01-10] MEDS: FERROUS SULFATE 325MG TABLET PO SCH (08:31)
[2023-01-10] MEDS: AMLODIPINE 2.5MG TABLET PO SCH (08:31)
[2023-01-10] MEDS: GUAIFENESIN 600MG ER TABLET PO SCH (08:35)
[2023-01-10] MEDS: PANTOT AC/MIN OIL/PET HY-PHL OINT (AQUAPHOR) TOP SCH (08:35)
[2023-01-10] MEDS: IPRATROPIUM/ALBUTEROL 0.5-3(2.5)MG/3ML NEB HHN PRN (09:53)
[2023-01-10 09:59] VITALS: BP 117/60; PULSE 94; TEMP 97.5; O2SAT 100
[2023-01-10 10:05] VITALS: PULSE 94; RESP 18; O2SAT 96
== END 2023-01-10 12:30 | disposition home health service (06) | DRG 73 ==
PROVIDERS: ADMIT Physical Medicine & Rehabilitation Spinal Cord Injury Medicine; ATTEND Internal Medicine
DX: G62.9 Polyneuropathy, unspecified (principal); E43 Unspecified severe protein-calorie malnutrition; I50.33 Acute on chronic diastolic (congestive) heart failure; G93.41 Metabolic encephalopathy; J96.02 Acute respiratory failure with hypercapnia; I13.0 Hypertensive heart and chronic kidney disease with heart failure and stage 1 through stage 4 chronic kidney disease, or unspecified chronic kidney disease; Z68.42 Body mass index [BMI] 45.0-49.9, adult; N17.9 Acute kidney failure, unspecified; N39.0 Urinary tract infection, site not specified; M62.82 Rhabdomyolysis; G83.24 Monoplegia of upper limb affecting left nondominant side; D18.00 Hemangioma unspecified site; D86.9 Sarcoidosis, unspecified; E11.42 Type 2 diabetes mellitus with diabetic polyneuropathy; E78.5 Hyperlipidemia, unspecified; J44.9 Chronic obstructive pulmonary disease, unspecified; M47.9 Spondylosis, unspecified; L85.3 Xerosis cutis; N18.9 Chronic kidney disease, unspecified; D64.9 Anemia, unspecified; E66.01 Morbid (severe) obesity due to excess calories; B96.1 Klebsiella pneumoniae [K. pneumoniae] as the cause of diseases classified elsewhere; N18.30 Chronic kidney disease, stage 3 unspecified; M75.01 Adhesive capsulitis of right shoulder; M48.061 Spinal stenosis, lumbar region without neurogenic claudication; M48.02 Spinal stenosis, cervical region; M47.814 Spondylosis without myelopathy or radiculopathy, thoracic region; M19.011 Primary osteoarthritis, right shoulder; K42.9 Umbilical hernia without obstruction or gangrene; F39 Unspecified mood [affective] disorder; E87.5 Hyperkalemia; E78.00 Pure hypercholesterolemia, unspecified; E55.9 Vitamin D deficiency, unspecified; E11.65 Type 2 diabetes mellitus with hyperglycemia; E11.51 Type 2 diabetes mellitus with diabetic peripheral angiopathy without gangrene; D50.9 Iron deficiency anemia, unspecified; E11.22 Type 2 diabetes mellitus with diabetic chronic kidney disease; R62.7 Adult failure to thrive; R29.6 Repeated falls; R53.1 Weakness; T42.6X5A Adverse effect of other antiepileptic and sedative-hypnotic drugs, initial encounter; R26.2 Difficulty in walking, not elsewhere classified; Y92.89 Other specified places as the place of occurrence of the external cause; Z99.81 Dependence on supplemental oxygen; Z91.81 History of falling; Z90.49 Acquired absence of other specified parts of digestive tract; Z86.011 Personal history of benign neoplasm of the brain; Z83.3 Family history of diabetes mellitus; Z82.49 Family history of ischemic heart disease and other diseases of the circulatory system; Z80.3 Family history of malignant neoplasm of breast; Z80.1 Family history of malignant neoplasm of trachea, bronchus and lung; Z79.84 Long term (current) use of oral hypoglycemic drugs; Z63.4 Disappearance and death of family member; Z71.3 Dietary counseling and surveillance
CPT/HCPCS: 36415; 36600; 71046; 72141; 72146; 72148; 73030; 80048; 80053; 81003; 82140; 82306; 82375; 82533; 82550; 82570; 82607; 82728; 82746; 82805; 82962; 83036; 83540; 83550; 83735; 84132; 84300; 84439; 84443; 85025; 92610; 93970; 94640; 94660; 97110; 97116; 97162; 97166; 97530; 97535; 97542; A6261; C1893; J1815; J3301; J3490; J7626